=== PATIENT | male | born 1995 ===

== ENCOUNTER 2018-10-04 11:05 | Emergency (ER) | payer SELFPAY ==
[~2018-10-04] VITALS: Ht 167.6 cm; Wt 65.8 kg
[2018-10-04] MEDS ORDERED: ZIPRASIDONE 20 MG INJ (GEODON) VIAL IM ONE ×2 (12:34→13:15)
[2018-10-04] MEDS ORDERED: WATER (STERILE) FOR INJECTION 10 ML ONE (12:35)
[2018-10-04] MEDS ORDERED: hydrOXYzine (VISTARIL) 25 MG capsule/tablet ONE (13:27)
[2018-10-04 13:33] LABS: BASOPHILS % (AUTO) 0 % (0-10); EOSINOPHILS % (AUTO) 0 % (0-10); HEMATOCRIT 46 % (40-54); HEMOGLOBIN 16.4 G/DL (13.3-17.7); LYMPHOCYTES % (AUTO) 15 % (12-44); MEAN CORPUSCULAR HEMOGLOBIN 33 PG (25-34); MEAN CORPUSCULAR HGB CONC 35 G/DL (32-36); MEAN CORPUSCULAR VOLUME 92 FL (80-99); MONOCYTES % (AUTO) 9 % (0-12); PLATELET COUNT 386 10^3/uL (130-400); RED CELL DISTRIBUTION WIDTH 11.9 % (10.0-14.5); WHITE BLOOD COUNT 13.9 10^3/uL (4.3-11.0)
[2018-10-04 13:34] LABS: LYMPHOCYTES # (AUTO) 2.1 X 10^3 (1.0-4.0); MONOCYTES # (AUTO) 1.3 X 10^3 (0.0-1.0); NEUTROPHILS # (AUTO) 10.5 X 10^3 (1.8-7.8); NEUTROPHILS % (AUTO) 76 % (42-75)
[2018-10-04 13:35] LABS: ALANINE AMINOTRANSFERASE 42 U/L (0-55); ALBUMIN 5.2 GM/DL (3.2-4.5); ALKALINE PHOSPHATASE 99 U/L (40-136); BILIRUBIN,TOTAL 1.3 MG/DL (0.1-1.0); BUN/CREATININE RATIO 22; CALCIUM 9.7 MG/DL (8.5-10.1); CARBON DIOXIDE 23 MMOL/L (21-32); CHLORIDE 99 MMOL/L (98-107); CREATININE SERUM 0.83 MG/DL (0.60-1.30); GFR ESTIMATED > 60; GLUCOSE 101 MG/DL (70-105); POTASSIUM 4.1 MMOL/L (3.6-5.0); SODIUM 140 MMOL/L (135-145); TOTAL PROTEIN 8.7 GM/DL (6.4-8.2)
[2018-10-04 13:36] LABS: ACETAMINOPHEN < 10 UG/ML (10-30); SALICYLATE < 0.3 MG/DL (5.0-20.0)
[2018-10-04] MEDS ORDERED: hydrOXYzine (VISTARIL) 25 MG capsule/tablet PO ONE (13:45)
--- NOTE | 2018-10-04 13:50 | NUR ---
Call to [facility] office [phone] and spoke with Mary Ellen. Dr Zamudio requests info given to obtain a crisis intervention hotline number for a patient in [facility] whom seen and evaluated here in [place] and being released as non-threat to self or others at this time receiving medical clearance of and wanting to advice pt lives with mother whom called to get this pt brought to a hospital by [facility] [employer] Inspector today but would like somewhere pt can go as suspicious a prior mental health history when he lived in [place], [place]. Pt is non-contributing of history today. Received ok to place this phone number on discharge paperwork prepared by Dr Zamudio as a resource for patient and for mother for any contact need of further concerns for threat to self or others. The pt's mother reported via phone she has no car to drive pt or come get patient. Pt has been estranged from mother since age 18 and returned 2 weeks ago to her home.
--- NOTE | 2018-10-04 13:50 | ED Psychosocial ---
General Chief Complaint: Psych/Social Disorder Stated Complaint: COUGH SYRUP OVERDOSE Nursing Triage Note: Patient brought in by [facility] [employer] department. [facility] officer then left patient in waiting room. Jaqui ROBERSON was contacted due to patient behaviors and refusal to follow directions. FS Officers reported that [facility] officers informed them that a patient needs mental health evaluation. Patient acting suspiciously, refuses to answer questions, sighs heavily from time to time, refuses to follow directions. Source: patient Exam Limitations: no limitations History of Present Illness Date Seen by Provider: Oct 04, 2018 Time Seen by Provider: 11:30 Initial Comments Patient here from [facility] apparently by a deputy sheriff k9 handler. Apparently he drank cough syrup on Thursday and hasn't slept all weekend. He apparently was not acting right with his mother and somehow or another the officer brought him here for evaluation. On arrival here he was walking back to the room wouldn't really talk with us. Did answer his name and his birthday. He was able to do the registration process. Law enforcement was called to help. Patient does ultimately follow commands. No obvious injuries. In discussion with the patient's mother, he does have mental health disorder that is not currently being treated. He had moved here to be with her from [place] and she is not sure of what medicines he was on previously or what other disorders he has. This was found out via phone conversation as she is not in this town. Timing/Duration: yesterday, getting worse Severity: moderate Associated Symptoms: impaired concentration Allergies and Home Medications Allergies Coded Allergies: No Allergy Information Available (Unverified , 10/04/18) Patient Home Medication List Home Medication List Reviewed: Yes Review of Systems Constitutional: see HPI; No chills, No fever EENTM: no symptoms reported Respiratory: No short of breath Cardiovascular: No chest pain Gastrointestinal: No diarrhea, No vomiting Psychiatric/Neurological: Emotional Problems Patient would not answer other questions. Past Lmlbwmv-Elwmwy-Vrhsip Hx Past Med/Social Hx: Reviewed Nursing Past Med/Soc Hx Patient Social History Alcohol Use: Denies Use Smoking Status: Unknown if Ever Smoked Recent Foreign Travel: No (Unknown) Contact w/Someone Who Travel: No (Unknown) Recent Infectious Disease Expo: No (Unknown) Recent Hopitalizations: No (Unknown) Past Medical History Psychosocial: Yes Blood Disorders: No Family Medical History Reviewed Nursing Family Hx Physical Exam Vital Signs - First Documented 10/04/18 11:16 Temp 98.9 Pulse 62 Resp 20 B/P (MAP) 109/87 (94) Pulse Ox 100 O2 Delivery Room Air Capillary Refill : Less Than 3 Seconds Height, Weight, BMI Height: 5'6.00" Weight: 145lbs. oz. 65.732733ya; BMI Method:Estimated General Appearance: WD/WN, no apparent distress HEENT: PERRL/EOMI Neck: non-tender, full range of motion, supple, normal inspection Respiratory: lungs clear, normal breath sounds Cardiovascular: regular rate, rhythm, no murmur Gastrointestinal: normal bowel sounds, non tender, soft Extremities: non-tender, normal inspection Neurologic/Psychiatric: alert Appearance/Memory: disheveled Behavior/Eye Contact: refused to answer Skin: normal color, warm/dry Progress/Results/Core Measures Results/Orders Lab Results Laboratory Tests Test 10/04/18 12:57 Range/Units White Blood Count 13.9 H 4.3-11.0 10^3/uL Red Blood Count 5.01 4.35-5.85 10^6/uL Hemoglobin 16.4 13.3-17.7 G/DL Hematocrit 46 40-54 % Mean Corpuscular Volume 92 80-99 FL Mean Corpuscular Hemoglobin 33 25-34 PG Mean Corpuscular Hemoglobin Concent 35 32-36 G/DL Red Cell Distribution Width 11.9 10.0-14.5 % Platelet Count 386 130-400 10^3/uL Mean Platelet Volume 9.0 7.4-10.4 FL Neutrophils (%) (Auto) 76 H 42-75 % Lymphocytes (%) (Auto) 15 12-44 % Monocytes (%) (Auto) 9 0-12 % Eosinophils (%) (Auto) 0 0-10 % Basophils (%) (Auto) 0 0-10 % Neutrophils # (Auto) 10.5 H 1.8-7.8 X 10^3 Lymphocytes # (Auto) 2.1 1.0-4.0 X 10^3 Monocytes # (Auto) 1.3 H 0.0-1.0 X 10^3 Eosinophils # (Auto) 0.0 0.0-0.3 10^3/uL Basophils # (Auto) 0.0 0.0-0.1 10^3/uL Sodium Level 140 135-145 MMOL/L Potassium Level 4.1 3.6-5.0 MMOL/L Chloride Level 99 98-107 MMOL/L Carbon Dioxide Level 23 21-32 MMOL/L Anion Gap 18 H 5-14 MMOL/L Blood Urea Nitrogen 18 7-18 MG/DL Creatinine 0.83 0.60-1.30 MG/DL Estimat Glomerular Filtration Rate > 60 BUN/Creatinine Ratio 22 Glucose Level 101 70-105 MG/DL Calcium Level 9.7 8.5-10.1 MG/DL Corrected Calcium 8.5-10.1 MG/DL Total Bilirubin 1.3 H 0.1-1.0 MG/DL Aspartate Amino Transf (AST/SGOT) 28 5-34 U/L Alanine Aminotransferase (ALT/SGPT) 42 0-55 U/L Alkaline Phosphatase 99 40-136 U/L Total Protein 8.7 H 6.4-8.2 GM/DL Albumin 5.2 H 3.2-4.5 GM/DL Salicylates Level < 0.3 L 5.0-20.0 MG/DL Acetaminophen Level < 10 L 10-30 UG/ML Serum Alcohol < 10 <10 MG/DL My Orders Orders - ANA AGUILAR MD Ziprasidone Injection (Geodon Injection) (10/04/18 12:34) Water (Sterile) For Injection (Sterile W (10/04/18 12:35) Ziprasidone Injection (Geodon Injection) (10/04/18 13:15) Ua Culture If Indicated (10/04/18 13:10) Cbc With Automated Diff (10/04/18 13:10) Comprehensive Metabolic Panel (10/04/18 13:10) Alcohol (10/04/18 13:10) Drug Screen Stat (Urine) (10/04/18 13:10) Acetaminophen (10/04/18 13:10) Salicylate (10/04/18 13:10) Ekg Tracing (10/04/18 13:10) Bh Status Checks/Observation Q15M (10/04/18 13:10) Hydroxyzine Cap/Tab (Vistaril) (10/04/18 13:27) Hydroxyzine Cap/Tab (Vistaril) (10/04/18 13:45) Medications Given in ED Current Medications Medications Dose Ordered Sig/Liudmila Route Start Time Stop Time Status Last Admin Dose Admin Hydroxyzine Pamoate 25 mg ONCE ONCE PO 10/04/18 13:45 10/04/18 13:46 DC 10/04/18 13:34 25 MG Ziprasidone 10 mg ONCE ONCE IM 10/04/18 13:15 10/04/18 13:16 DC 10/04/18 12:45 10 MG Vital Signs/I&O 10/04/18 11:16 Temp 98.9 Pulse 62 Resp 20 B/P (MAP) 109/87 (94) Pulse Ox 100 O2 Delivery Room Air Blood Pressure Mean: 94 Progress Progress Note : Progress Note Seen and evaluated. very difficult exam and evaluation as patient initially did not appear to want anything done although is not answering questions. No obvious injuries. Lawn for splint assisted with trying to get more information on the patient. They did talk with him as well. Does not seem to be significantly threatening although occasionally stands tense and is somewhat uncooperative. He can be redirected. Geodon 10 mg IM given. Labs were drawn afterwards and those are pending. 1350: Patient complained of itching in his eyes and some pain. Vistaril 25 mg by mouth given which the patient did accept. Patient is talking more now. He is saying inappropriate sexual comments to the nurses but otherwise is following commands. Redirectable by me. Patient has been in and out of his room multiple times. Currently resting more peacefully. We have initiated attempts to get follow-up appointment with mental health for him as he does not appear to be suicidal or homicidal there is some concern rate guarding has not sleeping. Does appear to be tired now. Mother is unable to pick him up because of transportation. We will see if there is another way to get him home. Monitor patient. 1400: Patient is asking to go home. His mother cannot pick him up but law enforcement has agreed to take him back home. Patient is amiable. He is doing better currently. Discharged back to his mother's house with law enforcement assistance. We are working on setting up appointment for him at [facility]. Departure Impression Primary Impression: Psychosis Qualified Codes: F23 - Brief psychotic disorder Disposition: 01 HOME, SELF-CARE Condition: Stable Departure-Patient Inst. Decision time for Depature: 14:08 Patient Instructions: Acute Psychosis (DC) Add. Discharge Instructions: All discharge instructions reviewed with patient and/or family. Voiced understanding. Follow-up with mental health in one to 2 days for recheck and further evaluation. Return for worse pain, fever, vomiting, weakness, breathing problems or other concerns as needed. Please called the crisis Department at [facility]. [facility] at [phone] for appointment in one to 2 days. ANA AGUILAR MD Oct 04, 2018 13:50
[2018-10-04 14:19] VITALS: BP 120/80
--- NOTE | 2018-10-04 14:19 | NUR ---
1116 - Patient brought in by [facility] for mental health evaluation. Patient acting inappropriately at this time. Standing at nurses desk, refusing to go his room for evaluation, patient not answering questions or responding appropriatley. 1116 - [facility] contacted for assistance. Patient repeatedly exiting room and and standing at the nurses desk. Unable to get him into room for evaluation. 1120 - [facility] arrived. 1245 - 10mg Geodon given IM at this time 1320 - [facility] left at this time. 1325 - Patient again started exiting the room repeatedly. This nurse continually redirected him back to his room. Patient making inappropriate comments and actions at this time. Reinforced with patient that these comments and behaviors were not acceptable. 1415 - Patient resting with eyes closed at this time appears to be sleeping. 1419 - [facility] arrived to escort patient home at this time.
== END 2018-10-04 14:19 | disposition home or self-care (01) ==
LOC: ER FS 11:08
DX: F29 Unspecified psychosis not due to a substance or known physiological condition (principal)
CPT/HCPCS: 36415; 80053; 80320; 80329; 85025; 96372; 99284